=== PATIENT | female | born 1985 | race African-American/Black ===

== ENCOUNTER 2023-12-25 15:08 | Emergency (ER) | payer MEDICAID ==
[~2023-12-25] VITALS: Ht 182.9 cm; Wt 91.6 kg
[2023-12-25 16:29] VITALS: BP 118/84; PULSE 109; RESP 16; TEMP 97.7; O2SAT 100
[2023-12-25] MEDS ORDERED: LORA-483 PO (16:45)
[2023-12-25] MEDS ORDERED: BENZ100C97 PO (16:45)
[2023-12-25] MEDS ORDERED: PRED20TA2 PO (16:45)
== END 2023-12-25 16:51 | disposition home or self-care (01) ==
LOC: ER 15:08
DX: J40 Bronchitis, not specified as acute or chronic (principal)
CPT/HCPCS: 71046

== ENCOUNTER 2024-01-22 00:09 | Emergency (ER) | payer MEDICAID ==
[~2024-01-22] VITALS: Ht 180.3 cm; Wt 81.8 kg
[~2024-01-22 00:09] MED LIST: BENZ100C97 PO; LORA-483 PO; PRED20TA2 PO
[2024-01-22 00:20] VITALS: BP 125/83; PULSE 113; RESP 18; O2SAT 98
[2024-01-22] MEDS: ACETAMINOPHEN 325 MG TAB PO ONE (01:38)
[2024-01-22] MEDS ORDERED: IBUP-1456 PO (02:36)
[2024-01-22] MEDS ORDERED: CYCL-837 PO (02:36)
== END 2024-01-22 03:15 | disposition home or self-care (01) ==
LOC: ER 00:09
DX: S20.212A Contusion of left front wall of thorax, initial encounter (principal); Y04.2XXA Assault by strike against or bumped into by another person, initial encounter; Y93.89 Activity, other specified; Y92.89 Other specified places as the place of occurrence of the external cause; Y99.8 Other external cause status
CPT/HCPCS: 71101; 81025